=== PATIENT | male | born 1995 | race Caucasian/White ===

== ENCOUNTER 2017-10-10 19:46 | Emergency (ER) | payer MEDICARE, MEDICAID ==
--- NOTE | 2017-10-10 20:12 | UC ---
Skin Complaint HPI - HPI Summary HPI Summary: 22 year old male presents with complains of a lesion on his penis and left side of his face. - History of Current Complaint Chief Complaint: UCSkin Time Seen by Provider: 10/10/17 20:08 Stated Complaint: SKIN COMPLAINT Hx Obtained From: Patient Onset/Duration: Sudden Onset Onset Severity: Moderate Current Severity: Moderate Location: Face, Other - penis - Allergy/Home Medications Allergies/Adverse Reactions: Allergies Allergy/AdvReac Type Severity Reaction Status Date / Time Codeine AdvReac Intermediate GI Upset Verified 10/10/17 20:07 Review of Systems Constitutional: Negative Skin: Rash Eyes: Negative ENT: Negative Respiratory: Negative Cardiovascular: Negative Gastrointestinal: Negative Genitourinary: Negative Motor: Negative Neurovascular: Negative Musculoskeletal: Negative Neurological: Negative Psychological: Negative All Other Systems Reviewed And Are Negative: Yes PMH/Surg Hx/FS Hx/Imm Hx Previously Healthy: Yes - Surgical History Surgical History: None - Family History Known Family History: Positive: None - Social History Alcohol Use: None Substance Use Type: None Smoking Status (MU): Heavy Every Day Tobacco Smoker Type: Cigarettes Amount Used/How Often: 1 PPD Length of Time of Smoking/Using Tobacco: 4 yrs Have You Smoked in the Last Year: Yes - Immunization History Most Recent Tetanus Shot: age 14 yo Physical Exam Triage Information Reviewed: Yes Vital Signs Reviewed: Yes Eye Exam: Normal ENT Exam: Normal Dental Exam: Normal Neck exam: Normal Neck: Positive: 1 Respiratory Exam: Normal Cardiovascular Exam: Normal Abdominal Exam: Normal Musculoskeletal Exam: Normal Neurological Exam: Normal Psychological Exam: Normal Skin: Positive: rashes - left side of face and penis Course/Dx - Diagnoses Provider Diagnoses: folliculitis Discharge - Discharge Plan Condition: Stable Disposition: HOME Prescriptions: Cephalexin CAP* [Keflex CAP*] 500 mg PO TID #30 cap Mupirocin 2% CREAM* [Bactroban 2% CREAM*] 1 applic TOPICAL BID #1 tube Patient Education Materials: Acute Rash (ED), Folliculitis (ED) Referrals: KELVIN Peterson [Primary Care Provider] - Tamia Marshall [Medical Doctor] -
[2017-10-10 20:18] VITALS: BP 132/65
[2017-10-12 19:44] LABS: HS/VZ Source PENILE; Varicella Zoster Result Negative (Negative); Varicella Zoster Source PENILE
[2017-10-12 19:44] LABS: HS/VZ Source PENILE; Varicella Zoster Result Negative (Negative); Varicella Zoster Source PENILE
== END 2017-10-10 21:00 | disposition home or self-care (01) ==
LOC: UCCORT 19:46
DX: L73.9 Follicular disorder, unspecified (principal); Z88.5 Allergy status to narcotic agent; F17.210 Nicotine dependence, cigarettes, uncomplicated
CPT/HCPCS: 87070; 87205; 87529; 87640; 87641; 87798; 99212; G0463

== ENCOUNTER 2017-10-23 12:14 | Emergency (ER) | payer MEDICARE, MEDICAID ==
[2017-10-23 13:05] VITALS: BP 127/68
--- NOTE | 2017-10-23 14:23 | UC ---
Skin Complaint HPI - HPI Summary HPI Summary: c/o itchy bumps on L penis for some weeks. Was seen here 10/10/17, spot was opened up and "full of pus." Since then has been concerned about white bumps that he sees on his penis. Also has longstanding anxiety, and reports that his anxiety symptoms are much worse than normal. Sees N for this, but no effective treatment yet. - History of Current Complaint Chief Complaint: UCSkin Time Seen by Provider: 10/23/17 14:01 Stated Complaint: SKIN COMPLAINT Hx Obtained From: Patient Onset/Duration: Gradual Onset, Lasting Weeks Timing: Constant Onset Severity: Mild Current Severity: Mild Location: Discrete Character: Pruritus, Raised Aggravating Factor(s): Nothing Alleviating Factor(s): Nothing Associated Signs & Symptoms: Positive: Rash - Allergy/Home Medications Allergies/Adverse Reactions: Allergies Allergy/AdvReac Type Severity Reaction Status Date / Time Codeine AdvReac Intermediate GI Upset Verified 10/23/17 13:04 Review of Systems Constitutional: Negative Skin: Rash Eyes: Negative ENT: Negative Respiratory: Negative Cardiovascular: Negative Gastrointestinal: Negative Genitourinary: Negative Motor: Negative Neurovascular: Negative Musculoskeletal: Negative Neurological: Negative Psychological: Anxious Is Patient Immunocompromised?: No All Other Systems Reviewed And Are Negative: Yes PMH/Surg Hx/FS Hx/Imm Hx Psychological History: Anxiety - Surgical History Surgical History: None Surgery Procedure, Year, and Place: Hernia - Family History Known Family History: Positive: None - Social History Alcohol Use: None Substance Use Type: None Smoking Status (MU): Heavy Every Day Tobacco Smoker Type: Cigarettes Amount Used/How Often: 1 PPD Length of Time of Smoking/Using Tobacco: 4 yrs Have You Smoked in the Last Year: Yes - Immunization History Most Recent Influenza Vaccination: 2017 Most Recent Tetanus Shot: age 14 yo Physical Exam Triage Information Reviewed: Yes Appearance: No Pain Distress, Well-Nourished, Other: - visible signs of anxiety Vital Signs: Initial Vital Signs Temp 98.2 F 10/23/17 13:02 Pulse 64 10/23/17 13:02 Resp 16 10/23/17 13:02 BP 127/68 10/23/17 13:02 Vital Signs Reviewed: Yes Eye Exam: Normal Eyes: Positive: Conjunctiva Clear ENT Exam: Normal ENT: Positive: Normal ENT inspection, Hearing grossly normal, Pharynx normal, TMs normal Dental Exam: Normal Neck exam: Normal Neck: Positive: Supple, Nontender, No Lymphadenopathy Respiratory: Positive: Chest non-tender, Lungs clear, Normal breath sounds, No respiratory distress, No accessory muscle use, Other: - hyperventilation Cardiovascular Exam: Normal Cardiovascular: Positive: RRR, No Murmur Musculoskeletal Exam: Normal Neurological Exam: Normal Neurological: Positive: Alert Psychological Exam: Other - breathing pattern and grunting express marked anxiety, pt becomes tearful when speaking about his anxiety, does not want to take anything for it today Skin Exam: Other - Normal skin on penis. White bumps noted when pt pulls skin taut, consitent with hair follicles. No inflammation, drainage, or raised areas. Course/Dx - Diagnoses Provider Diagnoses: anxiety. healing folliculitis Discharge - Discharge Plan Condition: Stable Disposition: HOME Patient Education Materials: Anxiety (ED), Dermatitis (ED) Referrals: Ray Briggs MD [Medical Doctor] - KELVIN Peterson [Primary Care Provider] - As Soon As Possible Additional Instructions: As we discussed, I believe your anxiety is much more of a problem than the spots you have noticed. What you are describing as a rash appears to be normal hair follicles and healing changes after folliculitis. If it is still bothering you in a week or two, please contact Dr. Briggs about dermatological evaluation. Please see your primary care provider as soon as possible for your anxiety.
== END 2017-10-23 14:31 | disposition home or self-care (01) ==
LOC: UCCORT 12:14
DX: L73.9 Follicular disorder, unspecified (principal); F41.9 Anxiety disorder, unspecified; Z88.5 Allergy status to narcotic agent; F17.210 Nicotine dependence, cigarettes, uncomplicated
CPT/HCPCS: 99211; G0463